=== PATIENT | female | born 1975 | race Caucasian/White ===

== ENCOUNTER 2025-03-23 13:41 | Emergency (ER) | payer OTHER, SELFPAY ==
[2025-03-23 13:43] VITALS: BP 166/100; PULSE 82; RESP 18; TEMP 36.8; O2SAT 100; BMI 32.4
--- NOTE | 2025-03-23 16:23 | EDS_ITS ---
HPI History of Present Illness Chief Complaint: Other, Pain/Inj Informant: patient Narrative Narrative: Patient is a 49-year-old female with history of lymphedema presenting with neck pain and shoulder pain. Patient states that she woke up on Thursday morning (4 da ys ago) with very mild pain in her neck/mild stiffness. She went about her day and did not really notice much. She notes the day before she had been at [employer] and was moving her head a lot to the music for the entire game (about 3 hours). She denies any trauma. Notes over the past 2 days she has been having exponentially worsening pain in her neck that is now radiating to her right jaw and her scalp/hair feels like it hurts. She states she feels that her lymph nodes are swollen and she has a sore throat. She has had nausea and decreased today. She denies any known fevers. She has been taking 400 mg of ibuprofen regularly with no help. She notes her last dose was at 10 AM. She denies any numbness or tingling. Denies any rash. Is visiting from [place] and has been here for about a week in [place]. Denies any vision changes but does feel that she is having a hard time focusing however she attributes that to her pain. Inititally went to urgent care and they freaked her out and recommend she come to the emergency room. [facility] Medical History no medical history Home Medications ?Medication ?Instructions ?Recorded ?Last Taken ?Type cyclobenzaprine 10 mg tablet 10 mg PO TID PRN Muscle S pasm #20 03/23/25 Unknown Rx TABLETS diazepam 5 mg tablet (Valium) 5 mg PO QHS PRN muscle s pasm #2 03/23/25 Unknown Rx tabs ibuprofen 600 mg tablet 600 mg PO Q6H PRN PRN pain # 20 03/23/25 Unknown Rx TABLETS Allergy/AdvReac Type Severity Reaction Status Date / Time No Known Allergies Allergy Verified 03/23/25 13:43 Family History no significant family his Surgical History no surgical history Social History Smoking Status: Never smoker ROS ROS ED Constitutional Constitutional ED: Denies chills or fever(s) Eyes Eyes: Denies change in vision ENT ENT ED: Reports sore throat and other Details: right jaw pain Cardiovascular Cardiovascular: Denies chest pain or palpitations Respiratory/Chest Respiratory/Chest: Denies cough or dyspnea Gastrointestinal Gastrointestinal: Reports nausea; Denies abdominal pain or vomiting Musculoskeletal Musculoskeletal: Reports back pain and neck pain Integumentary Denies rash Neurologic Neurologic: Reports headache(s); Denies paresthesias or weakness Hematologic/Lymphatic Hematologic/Lymphatic: Denies easy bleeding or easy bruising EXAM Physical Exam Const Vital Signs: 03/23/25 13:43 03/23/25 14:41 03/23/25 17:43 Temperature 98.2 F Temperature Source Oral Pulse Rate 82 78 Respiratory Rate 18 16 Respiratory Effort Normal Non-Labored Respiratory Pattern Normal Blood Pressure 166/100 H 149/81 H Blood Pressure Mean 122 103 Pulse Ox 100 97 Oxygen Delivery Method Room Air Room Air Positive well nourished and well developed General Appearance ED: well developed and NAD HEENT Reports TM's clear and moist mucous membranes HEENT Narrative: Mild tenderness of the right jaw with opening and closing. No trismus. Normal visualized oropharynx. Negative for trauma Tympanic Membrane ED: Yes TM's clear Eyes PERRL Neck no lymphadenopathy and supple Neck Narrative: Decreased range of motion of the neck which elicits pain. Worse with active range of motion compared to passive range of motion. Pain worse with rotation to the left and right compared with flexion and extension. No midline bony tenderness. Negatvie Kernig sign. Chest Wall inspection of chest normal and palpation of chest normal Resp normal respiratory effort and clear to auscultation bilaterally Cardio regular rate and regular rhythm Back/Spine Back/Spine Narrative: Mild tenderness palpation along the right trapezius. No bony tenderness. Extremity normal to inspection General Extremety ED: Negative for edema or tenderness General Extremity: Negative for edema Neuro oriented x3, CN's II-XII intact bilaterally and no sensory deficits noted Neuro Narrative: Equal computer system specialist strength bilaterally. Sensorium / Orientation: alert Motor Exam: strength 5/5 throughout; Negative for general weakness Psych mental status grossly normal Skin no rashes or lesions noted and no wounds MDM MDM MDM Narrative Medical decision making narrative: Patient is a 49-year-old female presenting with neck, back and head pain. She is decreased range of motion of her neck. She denies any fevers. Did start having some decreased appetite today. Last dose of ibuprofen was at 10 AM. Differential includes not limited to torticollis, trapezius muscle spasm, tension headache, meningitis (lower suspicion as she does not have any fever). She does not have any report of trauma and does not report thunderclap headaches low suspicion for vertebral artery dissection or subarachnoid hemorrhage/aneurysm rupture. Patient given IV fluids, Valium and Toradol. Repeat evaluation she is feeling much better. Did check some basic labs as I discussed that given the stiffness of her neck I cannot definitively rule out meningitis. Her CBC was normal. She does have a mildly elevated CRP however patient states that she usually has elevated CRP (her care is usually in [place] and she does not know what her baseline is at the top of her head). I did offer CT imaging and lumbar puncture to definitively rule out meningitis as we discussed that I cannot definitively rule this out. Patient declined. Given that she has not had a fever and she does not describe this as the worst headache of her life I think it is more reasonable to hold off on meningitis workup. Repeat evaluation she is feeling much better. Discussed return precautions including if she develops fever, confusion, rash or worsening symptoms to return to the emergency room. Will be prescribed muscle relaxer and continue to alternate ibuprofen and Tylenol as needed for pain con trol. Given return precautions. Discharged home in stable condition Lab Data Attestation: I reviewed the patient's lab results. Labs: Laboratory Results - last 24 hr 03/23/25 16:55 WBC 10.2 RBC 4.61 Hgb 13.3 Hct 38.4 MCV 83.3 MCH 28.9 MCHC 34.6 RDW Std Deviation 38.5 RDW Coeff of Nichole 12.7 Plt Count 281 MPV 10.1 Immature Gran % (Auto) 0.300 Neut % (Auto) 71.5 H Lymph % (Auto) 20.0 Logan % (Auto) 7.2 Eos % (Auto) 0.7 Baso % (Auto) 0.3 Absolute Neuts (auto) 7.3 Absolute Lymphs (auto) 2.04 Nucleated RBC % 0 Sodium 138 Potassium 3.9 Chloride 105 Carbon Dioxide 21.3 Anion Gap 12 BUN 8 Creatinine 0.83 Estim Creat Clear Calc 91.05 Est GFR (MDRD) Non-Af 87 BUN/Creatinine Ratio 9.3 L Glucose 82 Calcium 9.6 C-React Prot Ext Range 27.50 H Discharge Plan Triage Chief Complaint: Other, Pain/Inj ED Provider: Shira Melo Dx/Rx/DC Orders Clinical Impression: Acute tension headache, Muscle spasms of neck Instructions: ED Headache, Tension, ED Neck Spasm, No Trauma Prescriptions: New diazepam [Valium] 5 mg tablet 5 mg PO QHS PRN (Reason: muscle spasm) Qty: 2 0RF cyclobenzaprine 10 mg tablet 10 mg PO TID PRN (Reason: Muscle Spasm) Qty: 20 0RF ibuprofen 600 mg tablet 600 mg PO Q6H PRN PRN (Reason: pain) Qty: 20 0RF Primary Care Provider: TYLER SMITH Referrals: TYLER SMITH [Other] Activity Restrictions/Additional Instructions: Use heat to your neck. I would avoid ice at this time. If you develop fever, severe headache or worsening symptoms please return to the emergency room. As we discussed your symptoms are consistent with muscle spasms causing pain but I cannot definitively rule out meningitis. You have been prescribed 2 different muscle relaxers. Do not mix them. The Valium is for nighttime for the next 2 nights. Print Language: [place] Disposition Disposition: Home, Self Care
[2025-03-23 17:06] LABS: Hematocrit 38.4 % (37-47); Hemoglobin 13.3 g/dL (12.0-15.0); Immature Granulocytes Count 0.030 X10^3/uL (0.0-0.0); Mean Corp Hgb Conc 34.6 g/dL (32-36); Mean Corpuscular Volume 83.3 fL (81-99); Mean Platelet Vol. 10.1 fl (6.2-12.0); NRBC Flagged by Analyzer 0 % (0-5); Platelet Count 281 K/mm3 (150-450); RBC Distribution Width CV 12.7 % (11.6-14.6); RBC Distribution Width SD 38.5 fl (35.1-43.9); Red Blood Count 4.61 M/mm3 (4.2-5.4); White Blood Count 10.2 K/mm3 (4.4-11.0)
[2025-03-23] MEDS: 0.9% Normal Saline (1000mL) 1,000 ML 999 ML IV (17:07)
[2025-03-23 17:28] LABS: Anion Gap 12 (5-15); BUN 8 mg/dL (4-19); BUN/Creat Ratio 9.3 RATIO (10-20); CRP 27.50 mg/L (0.0-3.0); Calcium,Total 9.6 mg/dL (7.6-11.0); Carbon Dioxide 21.3 mmol/L (21.0-32.0); Chloride 105 mmol/L (98-108); Estimated Creatinine Clearance 91.05 ml/min (50-250); Glucose 82 mg/dL (70-99); Potassium 3.9 mmol/L (3.3-5.1)
[2025-03-23 17:43] VITALS: BP 149/81; PULSE 78; RESP 16; O2SAT 97
[2025-03-23 18:57] VITALS: BP 149/81; PULSE 78; RESP 16; TEMP 36.6; O2SAT 97
== END 2025-03-23 19:06 | disposition home or self-care (01) ==
PROVIDERS: Emergency Provider Emergency Medicine; Visit Provider Emergency Medicine
DX: G44.209 Tension-type headache, unspecified, not intractable (principal); M62.838 Other muscle spasm; R79.82 Elevated C-reactive protein (CRP); J02.9 Acute pharyngitis, unspecified; R11.0 Nausea
CPT/HCPCS: 80048; 85025; 86140; 96361; 96374; 99282